=== PATIENT | male | born 1995 | race Two or more races ===

== ENCOUNTER 2021-08-02 20:10 | Emergency (ER) | payer SELFPAY ==
[~2021-08-02] VITALS: Ht 177.8 cm; Wt 98.9 kg
[2021-08-02 20:10] VITALS: BP 143/99
== END 2021-08-03 00:42 | disposition left against medical advice (07) ==
LOC: ER 20:10
DX: S21.219A Laceration without foreign body of unspecified back wall of thorax without penetration into thoracic cavity, initial encounter (principal); M25.511 Pain in right shoulder; W19.XXXA Unspecified fall, initial encounter; Y93.89 Activity, other specified; Y92.89 Other specified places as the place of occurrence of the external cause; Y99.8 Other external cause status